=== PATIENT | female | born 1970 | race Caucasian/White ===

== ENCOUNTER → 2017-12-12 | Outpatient (CLI) | payer OTHER | END | disposition home or self-care (01) | LOC: C.LABPBG 09:12 | PROVIDERS: ATTEND Family Medicine | DX: R39.89 Other symptoms and signs involving the genitourinary system (principal); R35.0 Frequency of micturition ==

== ENCOUNTER 2023-12-02 10:14 | Observation (INO) ==
--- NOTE | 2023-11-01 15:38 | PAT Medication Instructions ---
Medication Instructions Date of Service November 01, 2023 Home Medications Medication Instructions Recorded aspirin 81 mg tablet,delayed 81 mg PO QAM #90 tabs 12/03/22 release (Adult Low Dose Aspirin) rosuvastatin 10 mg tablet 10 mg PO QAM #90 tabs 01/24/23 losartan 50 mg tablet 50 mg PO QAM #90 tabs 08/17/23 cyclobenzaprine 5 mg tablet 5 mg PO TID PRN muscle spasm #10 09/21/23 tabs hydrochlorothiazide 12.5 mg tablet 12.5 mg PO QAM aspirin 81 mg tablet,delayed release (Adult Low Dose Aspirin) 81 mg PO QAM rosuvastatin 10 mg tablet 10 mg PO QAM losartan 50 mg tablet 50 mg PO QAM cyclobenzaprine 5 mg tablet 5 mg PO TID PRN muscle spasm ascorbic acid (vitamin C) 500 mg tablet (Vitamin C) 500 mg PO QAM cholecalciferol (vitamin D3) 50 mcg (2,000 unit) tablet (Vitamin D3) 50 mcg PO QAM pantoprazole 40 mg tablet,delayed release 40 mg PO QAM venlafaxine 37.5 mg capsule,extended release 24 hr 37.5 mg PO HS zinc 50 mg tablet 50 mg PO QAM DO NOT take the morning of surgery hydrochlorothiazide 12.5 mg tablet 12.5 mg PO QAM losartan 50 mg tablet 50 mg PO QAM ascorbic acid (vitamin C) 500 mg tablet (Vitamin C) 500 mg PO QAM cholecalciferol (vitamin D3) 50 mcg (2,000 unit) tablet (Vitamin D3) 50 mcg PO QAM zinc 50 mg tablet 50 mg PO QAM Take morning of surgery With a small sip of water, OTHERWISE NOTHING TO EAT OR DRINK AFTER MIDNIGHT: aspirin 81 mg tablet,delayed release (Adult Low Dose Aspirin) 81 mg PO QAM (unless surgeon directed otherwise) rosuvastatin 10 mg tablet 10 mg PO QAM cyclobenzaprine 5 mg tablet 5 mg PO TID PRN muscle spasm (if needed) pantoprazole 40 mg tablet,delayed release 40 mg PO QAM Take evening before surgery cyclobenzaprine 5 mg tablet 5 mg PO TID PRN muscle spasm (if needed) venlafaxine 37.5 mg capsule,extended release 24 hr 37.5 mg PO HS Other Notes If you have any questions please call us at [phone] or [phone] or [phone] or [phone]
--- NOTE | 2023-11-08 10:18 | Anesthesiology Consultation ---
Date of Service November 08, 2023 Assessment & Plan (1) Encounter for pre-operative examination: Chart Review Chart Review: Acceptable Risk for Surgery (pending ECHO/stress test if available ) and Patient seen in Pre Admission Testing - Please try to obtain 2019 stress test and ECHO from [facility] Pt currently scheduled as 23 hours observation. If surgeon decides to change patient to Same Day Joint, patient would be acceptable risk for TKA, pending patient is motivated, has good support and surgeon's office completes [facility] preop requirements. Per PAT appt on 11/08/23, patient with mild cold symptoms last week- improved- mild residual cough. Patient's tested positive for RSV last week. Both patient and tested negative for Covid. Patient will call if symptoms did not resolve prior to surgery. Will leave to surgeon's discretion if preop Covid testing needed Teaching & Discussion Pre-Anesthesia Teaching/Discussion Notes: Instructed NPO after midnight before surgery,except medications with 15 cc of water. Medication instructions provided according to the PAT guidelines. History Surgery Operation Date: 12/02/23 07:00 Proposed Procedures p Left Unicompartment Knee Arthroplasty vs Left Total Knee Arthroplasty - Naresh Ray, Height/Weight Height: 5 ft 1 in Weight: 83.1 kg Allergies Allergy/AdvReac Type Severity Reaction Status Date / Time amoxicillin Allergy Intermediate hives Verified 11/01/23 14:44 Penicillins Allergy Intermediate Hives Verified 11/01/23 14:44 Medications Home Medications Medication Instructions Recorded Confirmed Last Taken hydrochlorothiazide 12.5 mg tablet 12.5 mg PO QAM 09/28/22 11/01/23 Unknown aspirin 81 mg tablet,delayed 81 mg PO QAM #90 tabs 12/03/22 11/01/23 Unknown release (Adult Low Dose Aspirin) rosuvastatin 10 mg tablet 10 mg PO QAM #90 tabs 01/24/23 11/01/23 Unknown losartan 50 mg tablet 50 mg PO QAM #90 tabs 08/17/23 11/01/23 Unknown cyclobenzaprine 5 mg tablet 5 mg PO TID PRN muscle spasm #10 09/21/23 11/01/23 Unknown tabs ascorbic acid (vitamin C) 500 mg 500 mg PO QAM 11/01/23 11/01/23 Unknown tablet (Vitamin C) cholecalciferol (vitamin D3) 50 50 mcg PO QAM 11/01/23 11/01/23 Unknown mcg (2,000 unit) tablet (Vitamin D3) pantoprazole 40 mg tablet,delayed 40 mg PO QAM 11/01/23 11/01/23 Unknown release venlafaxine 37.5 mg 37.5 mg PO HS 11/01/23 11/01/23 Unknown capsule,extended release 24 hr zinc 50 mg tablet 50 mg PO QAM 11/01/23 11/01/23 Unknown Past Medical History Medical History (Updated 11/09/23 @ 09:59 by Zaira Villa PA-C) Arthritis Daytime somnolence Does snore No hx of sleep study Diverticulosis of colon Hx of diverticulitis- no recent flares Dyslipidemia HTN (hypertension) Hx of cardiac murmur During childhood Followed with Dr. Jimenez in [facility] in the past- only follows PRN No significant murmur noted at PAT appt 11/08/23 Menopausal vasomotor syndrome hot flashes Restless leg syndrome stable Exercise / Class Metabolic Activity II 4-5 Yardwork/Stairs/Walk up hill (one flight of stairs - no chest pain or SOB ) Past Family History Family History Mother Breast cancer Grandmother (Maternal) Breast cancer Aunt Breast cancer Other No family history of adverse response to anesthesia Denies family history of Ovarian cancer Prostate cancer Lung cancer Colorectal cancer Past Surgical History Surgical History H/O: hysterectomy 09/2002; secondary to fibroid cysts, still w/ ovaries History of tooth extraction Hx of colonoscopy S/P cholecystectomy 04/2006 S/P shoulder surgery 07/2015; tore L labrum repair Past Anesthesia History No Hx of Anesthesia Complications and No Family Hx of Anesthesia Complications History of PONV No Hx of PONV and No Hx of Motion Sickness Social History Smoking Status: Former smoker Do You Dip or Chew Tobacco: No Smoking End Date: 30+ years ago Hx Alcohol Use: Yes Alcohol type: beer and wine alcohol intake frequency: a few times a month Hx Substance Use: No substance use type: does not use Review of Systems Mild residual cough from head cold last week - recently positive for RSV. Both patient and tested negative for Covid Patient denies chest pain, shortness of breath, dyspnea on exertion, reflux, wheezing, palpitations. No hx of seizures, stroke, LA. No hx of blood clots or blood transfusions Physical Exam Vital Signs VITALS BP 146/88 P 69 TEMP 97.7 SP02 96% RESP 16 Constitutional no acute distress ENMT Mouth: no TMJ clicking Thyromental Distance: > or= 3.5 Finger Breadths (3.5) Mallampati Class: III Missing molars Neck neck extension not limited Respiratory normal respiratory effort; no respiratory distress Auscultation: lungs clear to auscultation bilaterally; no wheezes Cardiovascular Rate/Rhythm: regular rate and regular rhythm Heart Sounds: no murmur Vessels: no carotid bruit Musculoskeletal Spine: no pain with cervical ROM Extremities: extremities normal to inspection Psychiatric Orientation: alert Lab Results Anesthesia Preop Results Results Anesthesia Widget: WBC 9.42 K/ul (4.8-10.8) 11/08/23 Hgb 13.0 g/dl (12.0-16.0) 11/08/23 Hct 35.7 % (37.0-47.0) L 11/08/23 Plt 346 K/uL (130-400) 11/08/23 Na 139 mmol/L (136-145) 11/08/23 K 3.4 mmol/L (3.5-5.1) L 11/08/23 Cl 102 mmol/L (98-107) 11/08/23 CO2 31 mmol/L (21-32) 11/08/23 BUN 15 mg/dl (6-23) 11/08/23 Creat 0.66 mg/dl (0.6-1.2) 11/08/23 Glucose Level 82 mg/dl (70-99(Fasting)) 11/08/23 PT 10.7 Seconds (9.0-12.0) 11/08/23 PTT 27 Seconds (21-31) 11/08/23 INR 1.0 (0.9-1.1) 11/08/23 HA1c 4.5 % (4.5-5.6) 11/08/23 Blood Type O Positive 11/08/23 Antibody Screen NEGATIVE 11/08/23 Testing Electrocardiogram Date: 11/08/23 Findings: + SB @ (57bpm) Otherwise normal EKG per cardio Chest X-Ray Date: 11/08/23 Findings: + NAD
[~2023-12-02 10:14] MED LIST: ROPIVACAINE 0.5% 5 MG/ML 30 ML VIAL ONE
[2023-12-02] MEDS ORDERED: MIDAZOLAM HCL 1 MG/ML 2ML VIAL ONE (10:38)
[2023-12-02] MEDS ORDERED: KETAMINE HCL 10MG/ML SYR ONE (10:39)
[2023-12-02] MEDS: LR 500ML BOLUS, THEN 15ML/HR IV SCH (10:53)
[2023-12-02] MEDS: ACETAMINOPHEN 500 MG TAB PO SCH ×2 (10:53→16:05)
[2023-12-02] MEDS: LR 60ML/HR IV SCH (10:53)
[2023-12-02] MEDS: GABAPENTIN 900 MG DOSE PO SCH (10:54)
[2023-12-02] MEDS: FAMOTIDINE 20 MG TAB PO SCH (10:54)
[2023-12-02] MEDS: dexAMETHasone**PF** 10 MG/ML VIAL IV SCH (10:54)
[2023-12-02] MEDS ORDERED: ePHEDrine sulfate 50 MG/ML AMP IV PRN (11:23)
[2023-12-02] MEDS ORDERED: ONDANSETRON INJ 2 MG/ML 2 ML VIAL IV PRN ×2 (11:23→15:15)
[2023-12-02] MEDS ORDERED: ATROPINE SULFATE 0.1 MG/ML 10ML SYR IV PRN (11:23)
[2023-12-02] MEDS ORDERED: HYDROmorphone INJ 2 MG/ML SYR/VIAL IV PRN (11:23)
[2023-12-02] MEDS ORDERED: fentaNYL citrate PF 100 MCG/2 ML VIAL IV PRN (11:23)
--- NOTE | 2023-12-02 11:24 | History & Physical Bridge Note ---
Date of Service December 02, 2023 History & Physical Bridge Note I have examined the patient, reviewed the History & Physical and in the interval since the performance of the History & Physical I have noted the following changes of clinical significance: no changes noted
[2023-12-02] MEDS: TRANEXAMIC ACID 1,000 MG **IV Pre-op IV SCH (12:04)
[2023-12-02] MEDS: ceFAZolin 2000MG 2,000 MG/15 ML SYR IV SCH ×2 (12:15→19:49)
[2023-12-02] MEDS ORDERED: PROPOFOL IV EMULSION 10 MG/ML 20 ML VIAL IV ONE (12:22)
[2023-12-02] MEDS ORDERED: GLYCOPYRROLATE 0.2 MG/ML VIAL ONE (12:22)
[2023-12-02] MEDS ORDERED: LIDOCAINE 2% 2 ML VIAL/AMP(20MG/ML) INFIL ONE (12:22)
[2023-12-02] MEDS ORDERED: ONDANSETRON INJ 2 MG/ML 2 ML VIAL ONE (12:22)
[2023-12-02] MEDS: ORTHO JOINT ANESTHETIC ONE (13:10)
[2023-12-02] MEDS: TRANEXAMIC ACID 1,000 MG **IV Intra-op IV SCH (13:15)
[2023-12-02] MEDS: ROPIV 0.5% 246mg, Ketorolac 30mg, EPINEPHrine 0.5mg in NSS INFIL SCH (13:15)
--- NOTE | 2023-12-02 13:36 | Operative Report ---
PG Post Operative Report Pre & Post Diagnosis Operation Date: 12/02/23 12:00 Pre-Op Diagnosis: Osteoarthritis of Left Knee Post-Op Diagnosis: Osteoarthritis of Left Knee I identified the patient and participated in the time-out.: Yes Procedure Operation Date: 12/02/23 12:00 Actual Procedures p Left Unicompartment Knee Arthroplasty(Left) - Naresh Ray DO Surgeon Naresh Ray DO Condenser Cleaner Naresh Ingram PA-C Estimated Blood Loss 30 Findings Consistent with Post-Op Diagnosis Specimens Right femoral tibial bone Description of Procedure Implants used: I used a Corina persona partial knee replacement system with a size 3 femoral implant, a size D tibial implant, and a size 8 polyethylene insert. On December 02, 2023 the patient arrived at [facility] for the above procedure. She was seen in the preoperative holding area and the operative extremity was identified and signed. She was given a preoperative antibiotic, a spinal anesthetic, and TXA. She was taken back the operative room and laid on table in supine position. She was put under sedation. The left knee was then prepped and draped sterile fashion. A timeout was done. The patient and the operative extremity was properly identified. A midline incision was made just medial to the patella. Dissection was taken down through the fascia. A small mid vastus arthrotomy was used. Medial retinaculum was released and the medial side of the knee was exposed. ACL and PCL were intact. The lateral compartment was intact. There was advanced arthritis in the medial compartment. A decision was made to do a partial knee replacement. The meniscus was excised. A proximal tibial cutting block was placed. 4 mm was resected off the proximal tibia. The knee was then brought to full extension. A distal femoral cutting block was placed and the distal femur was resected. The knee was then flexed. The femur measured to be a size 3. A size 3 cutting block was then pinned into place. 2 peg holes were then drilled. The posterior and chamfer cuts were then made. The cutting block was then removed. The tibia then measured to be a size D. A size D tibial cutting block was then impacted into place. The keel was punched. 2 peg holes were drilled. The knee was then flexed. A size 3 femoral component was then impacted into place. A size 8 polyethylene implant was then snapped into place. The knee was brought through full range of motion and felt to be stable. All trial implants were then removed. Surrounding soft tissues were injected with an orthopedic pain control cocktail. The tourniquet was deflated and hemostasis was obtained. The femoral and tibial components were then cemented in place with Biomet cement. Once the cement had hardened a size 8 polyethylene insert was then snapped into place. The knee was brought through full range of motion and felt to be stable. The extensor mechanism was closed with #1 Vicryl. Skin was closed with 2-0 Vicryl, 3-0 V-Loc suture, and jocelin. She was placed in a soft compressive dressing. She was then transferred to a hospital bed and taken to the postanesthesia care unit in stable condition. She tolerated the procedure well. Narseh Ingram PA-C, was present for the entire procedure. He was critical for patient positioning, prepping, draping, retraction exposure, wound closure and application of sterile dressing. I attest to the content of the Intraoperative Record and any orders documented therein. Any exceptions are noted below.
--- NOTE | 2023-12-02 14:14 | XRay Report ---
XR knee LT 1 or 2V routine CLINICAL HISTORY: Postoperative evaluation. COMPARISON: Left knee radiographs November 08, 2023. MRI of the left knee June 06, 2023. FINDINGS: Alignment of the medial compartment arthroplasty of the left knee is anatomic. There is no fracture or unexpected radiopaque foreign body. There are skin jocelin. IMPRESSION: Expected findings following medial compartment arthroplasty of the left knee. ACT 112: Negative or not required by law. Electronically signed by: Jimmy Nolasco M.D. 12/02/2023 2:13 PM
--- NOTE | 2023-12-02 14:26 | Anesthesiology Progress Note ---
Date of Service December 02, 2023 Anesthesia Post Procedure Vital Signs Vital Signs: Temp Pulse Pulse Resp BP Pulse Ox O2 Del Method 12/02/23 14:20 79 18 138/86 92 Room Air 12/02/23 14:10 73 16 132/86 98 Oxymask 12/02/23 14:00 83 18 143/89 H 97 Oxymask 12/02/23 13:50 83 15 141/79 H 97 Oxymask 12/02/23 13:44 36.5 C 87 19 131/82 97 Oxymask 12/02/23 10:38 36.9 C 74 18 164/106 H 98 Room Air O2 Flow Rate 12/02/23 14:20 0 12/02/23 14:10 2 12/02/23 14:00 4 12/02/23 13:50 6 12/02/23 13:44 8 12/02/23 10:38 Pain Intensity Left Knee: Pain Intensity: 4 Notes Mental Status: alert / awake / arousable Patient Amnestic to Procedure: Yes Nausea / Vomiting: adequately controlled Pain: adequately controlled Airway Patency, RR, SpO2: stable & adequate BP & HR: stable & adequate Hydration State: stable & adequate Neuraxial Anesthesia: was administered and sensory block is resolving Anesthetic Complications: no major complications apparent
[2023-12-02] MEDS ORDERED: HYDROmorphone INJ 0.5 MG/0.5 ML SYR IV PRN (15:15)
[2023-12-02] MEDS ORDERED: MAGNESIUM HYDROXIDE SUSP 30 ML UDC PO PRN (15:15)
[2023-12-02] MEDS ORDERED: CYCLOBENZAPRINE HCL 5 MG TAB PO PRN (15:15)
[2023-12-02] MEDS ORDERED: NALOXONE HCL 0.4 MG/1 ML VIAL/CARP IV PRN (15:15)
[2023-12-02] MEDS ORDERED: bisacodyL 10 MG SUPP PR PRN (15:15)
[2023-12-02] MEDS ORDERED: METOCLOPRAMIDE HCL INJ 5 MG/ML 2 ML VIAL IV PRN (15:15)
[2023-12-02] MEDS: SODIUM CHLORIDE 0.9% 1,000 ML IV SCH (16:04)
[2023-12-02] MEDS: KETOROLAC 30 MG/ML VIAL IV SCH (16:06)
[2023-12-02] MEDS: oxyCODONE HCL IR 5 MG TAB (IMMEDIATE RELEASE) PO PRN (18:17)
[2023-12-02] MEDS: SENNA 8.6 MG TAB PO SCH (20:07)
[2023-12-02] MEDS: VENLAFAXINE HCL XR 37.5 MG CAPXR PO SCH (20:07)
[2023-12-02] MEDS: ASPIRIN 81 MG ECTAB PO SCH (20:07)
[2023-12-02] MEDS: DOCUSATE SODIUM 100 MG CAP PO SCH (20:07)
[2023-12-03] MEDS: hydroCHLOROthiazide 25 MG TAB PO SCH (07:25)
[2023-12-03] MEDS: ZINC SULFATE 220 MG CAPSULE PO SCH (07:25)
[2023-12-03] MEDS: MULTIVITAMIN TAB PO SCH (07:26)
[2023-12-03] MEDS: ROSUVASTATIN CALCIUM 10 MG TAB PO SCH (07:26)
[2023-12-03] MEDS: LOSARTAN POTASSIUM 50 MG TAB PO SCH (07:26)
[2023-12-03] MEDS: dexAMETHasone 4 MG TAB PO SCH (07:27)
--- NOTE | 2023-12-03 07:43 | Surgery Progress Note ---
Date of Service December 03, 2023 Assessment & Plan (1) Status post left partial knee replacement: Plan: 53-year-old female postop day 1 from left partial knee replacement doing well. Pain is controlled. She is neurologically intact. Plan: He is can have therapy this morning. As long she does okay we will likely discharge her to home. Instructed on wound care. DVT prophylaxis. She will follow-up in the office in 2 weeks. Admission and Anticipated Discharge Date Admission Date: December 02, 2023 Subjective 53-year-old female postop day 1 from a left partial knee replacement. She is doing pretty well. Had a good night. Pain is controlled. No chest pain or shortness of breath. Not feeling dizzy or lightheaded. Physical Exam Physical Exam: Physical examination is a pleasant middle-age female. She is sitting up in bed looks quite comfortable this morning. Examination left leg reveals the dressing be clean dry and intact. Leg is well aligned. She can dorsiflex and plantarflex her foot appropriately. She is neurologically intact. Respiratory: normal respiratory effort, lungs clear to auscultation Cardiovascular: RRR, no murmur, no edema Gastrointestinal (Abdomen): normal bowel sounds, soft, nontender, no hepatosplenomegaly Results & Data Vital Signs (Past 12 Hours) Vital Signs Temp Pulse Resp BP Pulse Ox O2 Del Method 12/03/23 07:21 36.8 C 74 16 150/84 H 99 Room Air 12/03/23 03:43 36.6 C 80 16 135/80 97 Room Air 12/02/23 22:59 36.4 C L 63 16 161/91 H 95 Room Air PG Care Time/CCT Total # of Minutes Spent Total Time Spent with Patient: Total time spent is greater than 50% in coordination of care (as documented) at patient's floor/unit and/or counseling patient: Coding Level of Care Code None Diagnoses Status post left partial knee replacement Z96.652
--- NOTE | 2023-12-05 13:49 | Discharge Summary ---
Date of Service December 05, 2023 Principal Diagnosis Same as "Discharge Diagnosis" noted below under Discharge Instructions. Discharge Data Procedures Performed Operation Date: 12/02/23 12:00 Actual Procedures p Left Unicompartment Knee Arthroplasty(Left) - Naresh Ray DO Ordered Studies 12/02/23 05:00 US - OR guided needle placemen Routine Hospital Course (1) Status post left partial knee replacement: On December 02, 2023 Shonda arrived at [facility] and underwent a left partial knee replacement without complication. She had a spinal anesthetic. Postoperatively she was started on aspirin for DVT prophylaxis and transferred to the general orthopedic floors. Her hospital course was uneventful. On postop day #1, her vital signs were stable and her pain was well-controlled. She was able to participate well with physical therapy doing ambulation and range of motion exercises. She was then discharged home. She will follow-up with orthopedics in 2 weeks. PG Care Time/CCT Total # of Minutes Spent Total Time Spent with Patient: Total time spent is greater than 50% in coordination of care (as documented) at patient's floor/unit and/or counseling patient: Discharge Plan Discharge Items Patient Disposition: Home - Home Health Services Reason For Visit: Degenerative Joint Disease Left Knee Discharge Diagnosis: Left partial knee replacement Activity: Per Instructions section Non-emergency contact: Surgeon Call non-emergency contact if: your wound has increased redness and your wound has increased drainage Follow-up/Referrals: Inés Strauss DO [Primary Care Provider] - Addtl Attending Provider Instructions: Activity and Therapy Recommendations: * If you are using [facility] then therapy will be provided at your home until they feel you have accomplished all of your goals. * If you are using [facility] then Physical Therapy will be provided until they feel you are ready to start Outpatient Physical Therapy. * If you are not using home therapy then Outpatient Physical Therapy should start about 3-5 days from your day of surgery. Therapy will last about 6-10 weeks * It is important not to put a pillow under your knee when you are relaxing or sleeping. It is just as important to make sure you are getting your knee perfectly straight as it is to regain your knee bend. * You were shown a series of exercises in the hospital. Do these exercises three times each day including the exercises you were shown in physical therapy. * Get up and walk several times each day. For the first four weeks, try not to stand or walk for more than one hour at a time. If you do stand or walk for more than one hour, you will not hurt anything, but your leg will likely swell. * As you feel comfortable, you may change from the walker or crutches to a cane and then to independent walking. Medications: * Narcotic You will likely be sent home from the hospital with a prescription for the narcotic pain medication that worked best throughout your stay. * Cefadroxil -take the antibiotic twice a day for 10 days to help prevent infection. * Aspirin Most patients will be required to take Aspirin 81mg twice a day for 6 weeks after surgery. This is obtained [id number] and a prescription is not necessary. * Other medications may be prescribed for specific circumstances. If you have any questions, please call the office at . * Resume previous home medications unless otherwise instructed TEDs/Elastic Stockings: The white elastic stockings help limit swelling and prevent blood clots from forming in your legs.~ The more you wear them, the more they work. Wear them for six weeks. Dressing Care: The dressing can be changed after physical therapy on postop day #1. Daily dry dressing changes for a few days, especially if the incision is still draining some. If the incision is not draining then you may leave the jocelin open to air. If there is a little bit of drainage or if the jocelin are getting stuck on your clothing then cover the incision with a dry dressing. The jocelin will be removed at your 2 week follow-up appointment. Showering: You may shower 5 days from the day of surgery as long as the incision is no longer draining. You may shower with the jocelin exposed. Let soapy water run over the jocelin and pat them dry. Do not scrub or soak the incision. Things To Watch For: * Drainage from the incision site that occurs more than one week after your surgery. * Increased redness at the incision site. * Fever above 102 degrees Fahrenheit. * Unusual chest pain or shortness of breath. * Call [facility] at with any of the above problems Follow-Up Visit: Follow-up with Dr. Ray's PA (Naresh Ingram) 2-3 weeks after your day of surger y. He will remove your jocelin and answer any questions. If you have any additional questions or concerns, Dr Ray is usually in the office at the same time and will be available An appointment was probably scheduled when you signed-up for surgery in the office. If you have any questions call Office Instructions: More detailed instructions as well as Frequently Asked Questions were provided in a folder by our office when you signed-up for surgery. Please review these instructions when you get home. If you have any further questions or concerns, please feel free to call the office at [phone] Pending Studies at Discharge: No Stand-Alone Forms: [facility] [employer], Pain - Opioid Pain Management, Smoking Cessation Medications and DC Order Prescriptions: New oxycodone 5 mg capsule 5 mg PO Q6H PRN (Reason: pain) Qty: 30 0RF cefadroxil 500 mg capsule 500 mg PO BID 10 Days Qty: 20 0RF Continued cyclobenzaprine 5 mg tablet 5 mg PO TID PRN (Reason: muscle spasm) Qty: 10 0RF hydrochlorothiazide 12.5 mg tablet 12.5 mg PO QAM losartan 50 mg tablet 50 mg PO QAM Qty: 90 2RF venlafaxine [Effexor XR] 37.5 mg capsule,extended release 24hr 37.5 mg PO HS Patient Comments: takes for hot flashes pantoprazole 40 mg tablet,delayed release (DR/EC) 40 mg PO QAM ascorbic acid (vitamin C) [Vitamin C] 500 mg Tablet 500 mg PO QAM Patient Comments: unsure of dose zinc 50 mg Tablet 50 mg PO QAM Patient Comments: unsure of dose Rx Instructions: administer on empty stomach, at least 1 hour before or after meal(s) cholecalciferol (vitamin D3) [Vitamin D3] 50 mcg (2,000 unit) Tablet 50 mcg PO QAM Patient Comments: unsure of dose rosuvastatin [Crestor] 10 mg tablet 10 mg PO QAM Changed aspirin [Adult Low Dose Aspirin] 81 mg tablet,delayed release (DR/EC) 81 mg PO BID 42 Days Qty: 90 3RF Krames/Other Patient Handouts: DVT Post Op Prevention Admission Data Admit Date/Time: 12/02/23 12:35 Attending Provider: Naresh Ray Admit Provider: Naresh Ray Primary Care Provider: Inés Strauss Other Interventions: Discharge Summary Assessment (RN) Last Done: 12/03/23 10:07
== END 2023-12-03 11:39 | disposition home health service (06) ==
LOC: ASU 10:14 → INTOOBSV 12:35 → 3E 12:35